=== PATIENT | female | born 1975 | race Caucasian/White ===

== ENCOUNTER 2018-08-08 09:40 | Emergency (ER) | payer BC ==
[2018-08-08] MEDS ORDERED: NAPROXEN 250 MG TABLET PO STA (10:05)
--- NOTE | 2018-08-08 11:02 | XRAY Report ---
Reason: hip pain Procedure Date: 08/08/2018 Accession Number: [id number] / [id number] Procedure: XR - Hip w/Pelvis 2-3V LT CPT Code: FULL RESULT: EXAM: LEFT HIP RADIOGRAPHY EXAM DATE: 08/08/2018 10:48 AM. CLINICAL HISTORY: Left hip/groin pain. No known injury. COMPARISON: None. TECHNIQUE: 2 views. FINDINGS: Bones: Normal. No fractures or bone lesion. Joints: Normal. No dislocation. The hip joint space is preserved. Soft Tissues: Normal. No soft tissue swelling. IMPRESSION: Normal hip radiography. [facility]
--- NOTE | 2018-08-08 11:26 | ED Physician Documentation ---
PD HPI LOWER EXT INJURY - Stated complaint Stated Complaint: LT HIP PX - Chief complaint Chief Complaint: Ext Problem - History obtained from History obtained from: Patient - History of Present Illness PD HPI LOW EXT INJURY LOCATION: Left, Hip Type of injury: No: Fall, Twist, Blunt / blow, Penetrating / stab / GSW, Puncture wound Timing - onset: Yesterday Timing - details: Gradual onset Severity Comments: moderate Improved by: Rest Worsened by: Moving, Palpating Associated symptoms: No: Weakness, Numbness, Tingling, Swelling Contributing factors: No: Anticoagulated Similar symptoms before: No: No diagnosis Recently seen: Not recently seen - Additional information Additional information: 43-year-old female resents the emergency department with complaints of left hip pain with radiation into her upper thigh. No swelling of the leg or weakness, skin changes or recent trauma or bulging in the groin Review of Systems Constitutional: denies: Fever, Chills Eyes: denies: Discharge Ears: denies: Ear pain Throat: denies: Sore throat Cardiac: denies: Chest pain / pressure Respiratory: denies: Dyspnea : denies: Dysuria Musculoskeletal: reports: Extremity pain Neurologic: denies: Generalized weakness Psychiatric: denies: Depressed PD PAST MEDICAL HISTORY - Past Medical History Cardiovascular: None Respiratory: None Neuro: None Endocrine/Autoimmune: None GI: None PEER SPECIALIST: None : None HEENT: None Psych: None Musculoskeletal: None Derm: None - Past Surgical History General: Cholecystectomy /PEER SPECIALIST: section - Present Medications Home Medications: Ambulatory Orders Medication Instructions Recorded Confirmed No Known Home Medications 08/08/18 08/08/18 - Allergies Allergies/Adverse Reactions: Allergies Allergy/AdvReac Type Severity Reaction Status Date / Time hydromorphone [From Dilaudid] Allergy Hives Verified 08/08/18 09:56 - Social History Does the pt smoke?: No Smoking Status: Never smoker Does the pt drink ETOH?: No Does the pt have substance abuse?: No - Immunizations Immunizations are current?: Yes PD ED PE NORMAL - General General: Alert and oriented X 3, No acute distress - HEENT HEENT: Atraumatic, PERRL, EOMI, Ears normal - Derm Derm: Normal color - Extremities Extremities: No deformity, Normal ROM s pain, No edema. No: No tenderness to palpate (The patient has tenderness to palpation in the left hip and left sartorius muscle, no inguinal hernia. The patient has full active range of m otion of the left hip, knee and ankle. There is no swelling of the extremity, there is a normal radial pulse, normal motor strength and sensory.) - Neuro Neuro: Alert and oriented X 3, No motor deficit, Normal speech - Psych Psych: Normal affect Results - Vitals Vitals: Vital Signs - 24 hr 08/08/18 09:53 Temperature 36.0 C L Heart Rate 75 Respiratory 14 Rate Blood Pressure 121/79 O2 Saturation 98 Oxygen O2 Source Room air - Rads (name of study) XR hip Radiology: Final report received, See rad report (IMPRESSION: Normal hip radiography. ) PD MEDICAL DECISION MAKING - ED course ED course: No acute radiographic findings on the patient's x-ray, the patient's symptoms most likely represent a strain of the muscles of the groin. Presently the patient appears appropriate for discharge and outpatient management. The patient has normal pulses and no swelling of the extremity to suggest a vascular etiology, there is no cellulitic changes. And no evidence of trauma. I recommended outpatient physical therapy and anti-inflammatories. I advised returning to the emergency department for any worsening or any concerns Departure - Departure Disposition: 01 Home, Self Care Clinical Impression: Strain of hip Qualifiers: Encounter type: initial encounter Laterality: left Qualified Code(s): S76.012A - Strain of muscle, fascia and tendon of left hip, initial encounter Condition: Good Instructions: ED Strain Groin Follow-Up: Dolly Barlow ND [Primary Care Provider] - Within 1 week (Please asked Your [facility] provider to arrange for outpatient physical therapy) Comments: Please return to the emergency department for any worsening or any concerns
[2018-08-08 11:30] VITALS: BP 116/66
== END 2018-08-08 11:32 | disposition home or self-care (01) ==
LOC: ED 09:40
DX: S76.012A Strain of muscle, fascia and tendon of left hip, initial encounter (principal); X58.XXXA Exposure to other specified factors, initial encounter
CPT/HCPCS: 73502; 99283; A9270

== ENCOUNTER 2020-02-09 07:48 | Outpatient (CLI) | payer OTHER, BC ==
--- NOTE | 2020-02-09 10:48 | Ultrasound Report ---
PROCEDURE: Pelvic w/Transvaginal INDICATIONS: MILDLY ENLARGED AND DENSE UTERUS TECHNIQUE: Real-time scanning was performed of the pelvic organs, with image documentation. Additional endovagi nal scanning was necessary due to incomplete visualization of the adnexal and endometrial structures by transabdominal scanning. COMPARISON: None. FINDINGS: Transabdominal scanning: Limited scanning through the kidneys shows no hydronephrosis. No pathologi c free abdominal or pelvic fluid. Endovaginal scanning: Uterus: Uterus is normal in size at 4.5 x 4.9 x 9.0 cm. The endometrium measures 7.8 mm in combined thickness. There is a midline posterior subserosal 1.5 cm maximal dimension fibroid. At the cervix s cattered nabothian cysts are present the largest measuring 1.5 cm. Ovaries: The right ovary measures 2.5 x 2.1 x 1.8 cm and the left measures 3.0 x 2.5 x 1.8 cm. IMPRESSION: Single small uterine fibroid measuring only 2 cm in maximal dimension. Normal endometrial lining thic kness. No ascites or ovarian mass is found. Reviewed by: Pavel Lui MD on 02/09/2020 10:47 AM PDT Approved by: Pavel iLu MD on 02/09/2020 10:47 AM PDT Station ID: [id number]
== END 2020-02-09 07:49 | disposition home or self-care (01) ==
LOC: DI 07:48
PROVIDERS: ATTEND Nurse Practitioner Family
DX: D25.2 Subserosal leiomyoma of uterus (principal)
CPT/HCPCS: 76830; 76856

== ENCOUNTER 2020-03-18 13:10 | Outpatient (CLI) | payer OTHER, BC ==
[2020-03-18 13:58] VITALS: BP 108/80
--- NOTE | 2020-03-18 13:58 | SLEEP CARE CONSULTATION ---
Information from patient questionnaire entered by Ana Maria Wilder. I have reviewed and concur with the information entered by Ana Maria Wilder. This document represents the service I personally performed and the decisions made by me, Tracy Rivero ARNP. History of Present Illness Service Date and Time: 03/18/2020 1310 Reason for Visit: New patient Chief Complaint: reports: Insomnia, Unrefreshed sleep, Snoring (6 months to 1 year if laying on her back), Excessive daytime sleepiness (always tired), Fatigue (always tired), Frequent awakenings at night, Other (restless legs about 3 months). denies: Observed pauses in breathing Date of Onset: 3 + years Usual bedtime: 8:30 pm Time it takes to fall asleep: 20-30 min normally, 2-3 hours recently Snores at night: Yes (sometimes laying on back) Observed to quit breathing while asleep: Yes Sleeps alone due to snoring: No Number of times waking at night: 3 plus Reasons for waking at night: reports: Choking (occasional), Snoring, Gasping for air, Other (dreaming, anticipate alarm) Toss, Turn, or Twitch while sleeping: Yes Recalls having dreams: Yes (active conscious, dreaming all night) Usually gets out of bed at: 3 - 8 am; gets up to get off to work and goes back to bed until 8am Feels refreshed in the morning: No Morning headache: No Sleepy or fatigued during the day: Yes Ever fallen asleep while driving: No (drowsy driving in afternoon) Takes day naps: No Dreams during day naps: No Prior sleep studies: No Additional HPI information: I had the pleasure of seeing VICENTE SANCHEZ today regarding the possibility of her having a sleep disorder. Her current complaints are frequent awakening, fatigue, unrefreshed sleep, insomnia, and restless legs about 3 months. She is not getting restful sleep, she is having very vivid dreams, she feels like she is awake while dreaming and then she wakes up. She has always had insomnia and itchy, restless legs feeling in her legs prior to her period but lately the sensations are staying and seem to be worse in last 3 months. She does have some back and hip issues with possible sciatic pain that causes her to feel the need to superintendent house he legs too. She does have some relief from the sensations when she moves her legs/walks but it returns when she becomes still again. - Parasomnia Symptoms Ever been unable to move upon waking from sleep: No Walks in sleep: No Talks in sleep: No Ever acted out dreams in sleep: Yes (maybe a little bit) Ever felt weak in the knees when startled or emotional: No Bothered by creepy, crawly, restless sensations in legs: Yes (hx of with period, more constant in three months) Problems with memory or concentration: Yes (both, mostly concentration) Subjective Initial [place] Sleepiness Scale score: 5 (in 2019) Past Medical History Past Medical History: reports: Arthritis, Hypothyroidism, GERD (acid reflux), Attention deficit, Other (Vit D defincency, boarderline low thyroid). 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 Patient is and lives in [place]. Have you smoked in the past 12 months: No Alcohol use: Yes Alcohol amount and frequency: 1-2 drinks a month Caffeine use: Yes Caffeine amount and frequency: 1-2 a week Family History Family history of sleep disordered breathing: No Allergies and Home Medications Drug allergies reviewed: Yes (hydormorphone) Home medication list reviewed: Yes Allergy and home medication list: Thyroid support vitamin D3 K2 Zyrtec magnesium liver support Review of Systems Weight gain over past 5 years: 10 Weight loss over past 5 years: 10 Cardiovascular: reports: palpitations. denies: high blood pressure, chest pain, irregular heart rate or pulse, leg or foot swelling Respiratory: reports: chronic cough Gastrointestinal: reports: heartburn. denies: difficulty swallowing Neurological: reports: headaches. denies: seizure, head trauma, speech dysfunction, gait or balance problems, fainting or unconsciousness Psychiatric: reports: Attention Deficit Hyperactivity. denies: anxiety, depression, mood disorder, claustrophobia Ear/Nose/Throat: reports: nasal congestion, dry mouth/throat (post nasal allergy thing), wisdom teeth removed. denies: sinus problems, nose bleeds, injury to nose, tonsillectomy Endocrine: reports: thyroid disease, too hot or cold, increased appetite Musculoskeletal: reports: joint pain, neck pain, back pain, muscle pain or cramping Immunologic: reports: sneezing, itching, allergies to food or environment (seasonal allergies) Physical Exam Blood Pressure: 108/80 Cuff size: long Heart Rate: 74 O2 Saturation: 98 Height: 5 ft 3 in Weight: 179 lb Body Mass Index: 31.6 BMI Classification: Obese Neck circumference: 14.5 (inches) Nostrils: patent to airflow Turbinates: normal Septum: midline Mouth and throat: normal Soft palate: normal Hard palate: normal Uvula: normal Uvula visualization: 100% Mallampati Class I Tongue: normal in size Tonsils: 2+ Chin and jaw: normal size and position Neck: normal w/o lymphadenopathy or thyromegaly Heart: regular rate and rhythm Lungs: clear bilaterally Impression and Plan 1. Suspected Obstructive Sleep Apnea-Hypopnea Syndrome, as suggested by a history of loud and irregular snoring, gasping or choking in sleep, frequent awakening during the night, unrefreshed sleep, cognitive impairment, and excessive daytime sleepiness. Narrow oropharynx and obesity are common predisposing factors for obstructive sleep apnea-hypopnea syndrome. I recommend proceeding to polysomnography to confirm the diagnosis and to assess severity. If the patient has significant sleep disordered breathing, a manual CPAP titration study will also be performed to find the optimal treatment pressure. I informed the patient of what the sleep studies involve and after some discussion, obtained agreement to proceed. The pathophysiology of obstructive sleep apnea-hypopnea syndrome was discussed with the patient and health risks of cardiovascular and cerebrovascular disease if not treated. [facility] brochure for obstructive sleep apnea-hypopnea syndrome given and reviewed. Risks of drowsy driving discussed in detail and patient advised to avoid long distance driving and to clod puller at the first sign of drowsiness. Patient agreed to plan. [facility] drowsy driving brochure given. * Schedule polysomnography +- manual CPAP titration study and return in 1-2 weeks after the study to discuss result and initiate therapy. * Avoid long distance driving or driving when feeling sleepy. * Avoid alcohol, sedative and muscle relaxant around bedtime. * Attempt to lose weight. * Review instructions provided by trained office staff on how to prepare for the sleep study.
== END 2020-03-18 13:11 | disposition home or self-care (01) ==
LOC: SC 13:10
PROVIDERS: ATTEND Nurse Practitioner Family
DX: G47.8 Other sleep disorders (principal); R53.83 Other fatigue; G47.10 Hypersomnia, unspecified; R06.83 Snoring; E66.9 Obesity, unspecified; Z68.31 Body mass index [BMI] 31.0-31.9, adult
CPT/HCPCS: 99204; 99212